=== PATIENT | male | born 1975 | race African-American/Black ===

== ENCOUNTER 2018-11-26 22:44 | Emergency (ER) | payer MEDICAID | END 2018-11-27 01:29 | disposition left against medical advice (07) | LOC: ER 22:44 | DX: Z53.21 Procedure and treatment not carried out due to patient leaving prior to being seen by health care provider (principal) ==

== ENCOUNTER 2019-03-20 17:30 | Emergency (ER) | payer MEDICAID ==
[~2019-03-20] VITALS: Ht 175.3 cm; Wt 87.0 kg
[2019-03-20] MEDS ORDERED: IPRATROPIUM BROMIDE (0.02%) 0.5MG/2.5ML NEB HHN STA (17:48)
[2019-03-20] MEDS ORDERED: ALBUTEROL (0.083%) 2.5MG/3ML NEB HHN STA (17:48)
[2019-03-20] MEDS ORDERED: METHYLPREDNISOLONE SOD SUCC 125 MG/2 ML VIAL IV ONE (18:15)
[2019-03-20 19:01] VITALS: BP 135/85
== END 2019-03-20 19:24 | disposition home or self-care (01) ==
LOC: ER 18:53
DX: J45.901 Unspecified asthma with (acute) exacerbation (principal); I10 Essential (primary) hypertension; Z88.6 Allergy status to analgesic agent; Z91.018 Allergy to other foods
CPT/HCPCS: 71045; 94640; 96374; 99283; J2930; J7611; Z7610

== ENCOUNTER 2019-07-11 01:37 | Emergency (ER) | payer MEDICAID ==
[~2019-07-11] VITALS: Ht 175.3 cm; Wt 75.0 kg
[2019-07-11] MEDS ORDERED: IPRATROPIUM BROMIDE (0.02%) 0.5MG/2.5ML NEB HHN STA (02:32)
[2019-07-11] MEDS ORDERED: ALBUTEROL (0.083%) 2.5MG/3ML NEB HHN STA (02:32)
[2019-07-11 06:15] VITALS: BP 110/77
== END 2019-07-11 06:15 | disposition home or self-care (01) ==
LOC: ER 01:37
DX: J45.901 Unspecified asthma with (acute) exacerbation (principal); L53.9 Erythematous condition, unspecified; F12.10 Cannabis abuse, uncomplicated; F17.200 Nicotine dependence, unspecified, uncomplicated; Z88.6 Allergy status to analgesic agent; Z98.890 Other specified postprocedural states; Z91.018 Allergy to other foods
CPT/HCPCS: 71045; 94640; 99283; J7611; Z7610

== ENCOUNTER 2020-09-16 04:28 | Emergency (ER) | payer MEDICAID | END 2020-09-16 04:53 | disposition home or self-care (01) | LOC: ER 04:28 | DX: R06.02 Shortness of breath (principal); J45.909 Unspecified asthma, uncomplicated; F12.10 Cannabis abuse, uncomplicated; Z53.29 Procedure and treatment not carried out because of patient's decision for other reasons; Z88.6 Allergy status to analgesic agent; Z91.018 Allergy to other foods | CPT/HCPCS: 99281 ==

== ENCOUNTER 2021-02-15 03:23 | Emergency (ER) | payer MEDICAID ==
[~2021-02-15] VITALS: Ht 175.3 cm; Wt 73.0 kg
[2021-02-15] MEDS ORDERED: ACETAMINOPHEN 325MG TABLET PO STA (03:56)
[2021-02-15] MEDS ORDERED: FAMOTIDINE 20MG/2ML VIAL IV ONE (04:15)
[2021-02-15 04:53] LABS: BASOPHILS % 0.4 % (0.0-2.0); EOSINOPHILS % 0.2 % (0.0-5.0); HEMATOCRIT. 39.1 % (42.0-52.0); HEMOGLOBIN. 13.2 g/dL (14.0-18.0); LYMPHOCYTES % 20.7 % (20.0-50.0); MEAN CORPUSCULAR HEMOGLOBIN 30.3 pg (28.0-32.0); MEAN CORPUSCULAR VOLUME 89.7 fL (80.0-94.0); MONOCYTES % 10.5 % (2.0-8.0); NEUTROPHILS % 68.2 % (40.0-76.0); PLATELET 126 x1000/uL (130-400); RED BLOOD CELL COUNT 4.36 mill/uL (4.7-6.1)
[2021-02-15 05:00] LABS: CHLORIDE 102 mEq/L (98-107)
[2021-02-15 05:39] VITALS: BP 109/58
[2021-02-15] MEDS ORDERED: ACET-2708 MT (05:48)
[2021-02-15] MEDS ORDERED: FAMO-135 MT (05:48)
[2021-02-15] MEDS ORDERED: ALBU18HF2 IH (05:48)
== END 2021-02-15 06:19 | disposition home or self-care (01) ==
LOC: ER 03:23
DX: R07.89 Other chest pain (principal); J45.909 Unspecified asthma, uncomplicated; Z79.899 Other long term (current) drug therapy; Z88.8 Allergy status to other drugs, medicaments and biological substances
CPT/HCPCS: 36415; 71045; 80053; 83690; 83880; 84484; 85025; 93005; 96374; 99285; J3490

== ENCOUNTER 2022-07-08 07:19 | Emergency (ER) | payer MEDICAID ==
[~2022-07-08] VITALS: Ht 170.2 cm; Wt 69.0 kg
[~2022-07-08 07:19] MED LIST: ACET-2708 MT; ALBU18HF2 IH; FAMO-135 MT
[2022-07-08] MEDS ORDERED: IPRATROPIUM BROMIDE (0.02%) 0.5MG/2.5ML NEB HHN STA (07:45)
[2022-07-08] MEDS ORDERED: PREDNISONE 20MG TABLET PO STA (07:45)
[2022-07-08] MEDS ORDERED: ALBUTEROL (0.083%) 2.5MG/3ML NEB HHN STA (07:45)
[2022-07-08 09:02] LABS: BASOPHILS % 0.8 % (0.0-2.0); EOSINOPHILS % 6.9 % (0.0-5.0); HEMATOCRIT. 37.2 % (42.0-52.0); HEMOGLOBIN. 12.5 g/dL (14.0-18.0); LYMPHOCYTES % 31.6 % (20.0-50.0); MEAN CORPUSCULAR HEMOGLOBIN 30.1 pg (28.0-32.0); MEAN CORPUSCULAR VOLUME 89.1 fL (80.0-94.0); MONOCYTES % 11.6 % (2.0-8.0); NEUTROPHILS % 49.1 % (40.0-76.0); PLATELET 211 x1000/uL (130-400); RED BLOOD CELL COUNT 4.17 mill/uL (4.7-6.1); RED CELL DISTRIBUTION WIDTH 15.1 % (11.6-14.6)
[2022-07-08 09:14] LABS: CHLORIDE 104 mEq/L (98-107)
[2022-07-08 09:24] LABS: ETHANOL BLOOD < 10 mg/dL
[2022-07-08] MEDS ORDERED: PRED10TA MT (11:07)
[2022-07-08] MEDS ORDERED: ALBU6.7H3 INH (11:07)
[2022-07-08] MEDS ORDERED: N325 SL (11:07)
[2022-07-08 12:19] VITALS: BP 130/89
== END 2022-07-08 12:21 ==
LOC: ER 07:30
DX: J45.901 Unspecified asthma with (acute) exacerbation (principal); D72.819 Decreased white blood cell count, unspecified; D64.9 Anemia, unspecified; Z87.11 Personal history of peptic ulcer disease; Z87.891 Personal history of nicotine dependence; Z91.018 Allergy to other foods; Z88.6 Allergy status to analgesic agent; Z02.89 Encounter for other administrative examinations
CPT/HCPCS: 36415; 71045; 80053; 80320; 83880; 84484; 85025; 93005; 94640; 99285; J7512; Z7610; G0480

== ENCOUNTER 2023-08-11 19:48 | Emergency (ER) | payer MEDICAID ==
[~2023-08-11] VITALS: Ht 175.3 cm; Wt 65.0 kg
[~2023-08-11 19:48] MED LIST changes: +ALBU6.7H3 INH; +N325 SL; +PRED10TA MT
[2023-08-11 19:50] VITALS: BP 141/76; PULSE 61; RESP 14; TEMP 98.5; O2SAT 98
[2023-08-11 22:47] LABS: BASOPHILS % 0.5 % (0.0-2.0); EOSINOPHILS % 1.5 % (0.0-5.0); HEMATOCRIT. 34.9 % (42.0-52.0); HEMOGLOBIN. 11.7 g/dL (14.0-18.0); LYMPHOCYTES % 14.1 % (20.0-50.0); MEAN CORPUSCULAR HEMOGLOBIN 29.7 pg (28.0-32.0); MEAN CORPUSCULAR HGB CONC 33.5 g/dL (31.0-37.0); MEAN CORPUSCULAR VOLUME 88.9 fL (80.0-94.0); MEAN PLATELET VOLUME 8.8 fl (7.4-10.4); NEUTROPHILS % 78.9 % (40.0-76.0); PLATELET 294 x1000/uL (130-400); RED BLOOD CELL COUNT 3.93 mill/uL (4.7-6.1); RED CELL DISTRIBUTION WIDTH 15.1 % (11.6-14.6)
[2023-08-11 23:02] LABS: ALANINE AMINOTRANSFERASE 21 IU/L (10-49); ASPARTATE AMINOTRANSFERASE 17 IU/L (<34); BILIRUBIN TOTAL 0.4 mg/dL (0.1-1.0); CALCIUM 8.8 mg/dL (8.7-10.4); CARBON DIOXIDE 28 mEq/L (21-32); CHLORIDE 105 mEq/L (98-107); CREATININE 0.7 mg/dL (0.6-1.3); GLUCOSE 151 mg/dL (70-105); POTASSIUM 4.4 mEq/L (3.5-5.1); PROTEIN TOTAL 7.1 g/dL (6.0-8.3); SODIUM 138 mEq/L (136-145); UREA NITROGEN BLOOD 12 mg/dL (9-23)
[2023-08-11 23:05] LABS: ETHANOL BLOOD < 10 mg/dL (<10)
[2023-08-12] MEDS ORDERED: IPRATROPIUM BROMIDE (0.02%) 0.5MG/2.5ML NEB HHN STA (00:04)
[2023-08-12 01:01] LABS: TROPONIN I HIGH SENSITIVITY < 4 ng/L (3.0-53)
== END 2023-08-12 03:03 | disposition home or self-care (01) ==
LOC: ER 19:48
DX: F15.10 Other stimulant abuse, uncomplicated (principal); J45.901 Unspecified asthma with (acute) exacerbation; Z79.899 Other long term (current) drug therapy
CPT/HCPCS: 36415; 71045; 80053; 80320; 84484; 85025; 93005; 99285; G0480

== ENCOUNTER 2023-09-11 05:04 | Emergency (ER) | payer MEDICAID ==
[~2023-09-11] VITALS: Ht 175.3 cm; Wt 73.0 kg
[2023-09-11 05:27] VITALS: BP 139/86; TEMP 98.4; O2SAT 96
[2023-09-11] MEDS ORDERED: ALBU6.7H15 INH (06:13)
[2023-09-11] MEDS ORDERED: MUPI15CR11 TP (06:13)
[2023-09-11 06:35] VITALS: PULSE 78; RESP 20
[2023-09-11] MEDS: IPRATROPIUM BROMIDE (0.02%) 0.5MG/2.5ML NEB HHN STA (06:39)
[2023-09-11] MEDS: ALBUTEROL (0.083%) 2.5MG/3ML NEB HHN STA (06:40)
[2023-09-11] MEDS: BACITRACIN 14GM TUBE TOP ONE (06:52)
[2023-09-11] MEDS: BACITRACIN ZINC OINT UDPKT TOP NR (06:52)
== END 2023-09-11 09:58 | disposition home or self-care (01) ==
LOC: ER 05:12
DX: M79.672 Pain in left foot (principal); R06.2 Wheezing; Z79.899 Other long term (current) drug therapy
CPT/HCPCS: 94640; 99283; Z7610 ×3